=== PATIENT | male | born 1950 | race Caucasian/White ===

== ENCOUNTER 2021-05-31 11:06 | Emergency (ER) | payer OTHER, MEDICARE, SELFPAY ==
[2021-05-31 11:13] VITALS: PULSE 64; O2SAT 96
--- NOTE | 2021-05-31 11:15 | DI.RAD.S_ITS ---
PROCEDURE: XR CHEST 1V INDICATIONS: chest pain TECHNIQUE: One view of the chest was acquired. COMPARISON: None. FINDINGS: Surgical changes and devices: None. Lungs and pleura: Low lung volumes are noted. This causes a crowded appearance to the lung markings and limits evaluation. Minimal interstitial prominence can be seen throughout. No focal infiltrates are seen. No pneumothorax or pleural effusions are seen. Mediastinum: Mediastinal contours appear normal. Heart size is normal. Bones and chest wall: No suspicious bony lesions. Age-appropriate bony degenerative changes are seen. Overlying soft tissues appear unremarkable. IMPRESSION: Minimal interstitial prominence is seen throughout, which may be related to artifact from the low lung volumes or mild pulmonary edema. If clinically appropriate, a short-term followup chest series (with PA and lateral views) performed in deep inspiration is suggested for further evaluation. Dictated by: Feliciano Sheldon M.D. on 05/31/2021 at 10:40 Approved by: Feliciano Sheldon M.D. on 05/31/2021 at 10:41
[2021-05-31 11:16] VITALS: BP 139/76; PULSE 66; RESP 15; TEMP 36.3; O2SAT 98; BMI 30.5
[2021-05-31 11:23] LABS: Add Manual Diff / Slide Review NO; Basophils Absolute Auto 100 /uL (0-100); Eosinophils Absolute Auto 100 /uL (0-450); Eosinophils Percent Auto 1.1 % (2-4); Hematocrit 42.8 % (41-53); Hemoglobin 14.3 g/dL (13.5-17.5); Lymphocytes Absolute Auto 2200 /uL (1100-4500); Lymphocytes Percent Auto 26.4 % (25-40); Mean Corpuscular HGB Conc 33.5 % (30-36); Mean Corpuscular Hemoglobin 29.1 PG (26-34); Mean Corpuscular Volume 86.8 fL (80-100); Monocytes Absolute Auto 400 /uL (0-900); Monocytes Percent Auto 5.2 % (3-14); Neutrophils Absolute Auto 5600 /uL (1500-7000); Neutrophils Percent Auto 66.3 % (50-75); Platelet Count 266 X10^3/uL (150-400); Red Blood Cell Count 4.93 X10^6/uL (4.5-5.9); Red Cell Distribution Width 13.6 % (11.6-14.8); White Blood Cell Count 8.5 X10^3/uL (4.5-11.0)
--- NOTE | 2021-05-31 11:23 | ED.CHESTPAIN ---
HPI - Chest Pain General Chief Complaint: Chest Pain Stated Complaint: indigestion/lightheaded/mid chest pain 45mins ago Time Seen by Provider: 05/31/21 11:23 Source: patient Mode of arrival: Wheelchair Limitations: no limitations History of Present Illness HPI narrative: 70-year-old male. History of high blood pressure. Is visiting the area from [place]. No prior cardiac history except for the high blood pressure. No prior lung history. Approximately 1 hour ago had a fairly sudden onset of what he thought was indigestion, shortness of breath, pain behind his chest. Is been consistent since then. He did take 1 baby aspirin prior to arrival. No nausea vomiting. No abdominal pain. No lower extremity swelling. Related Data Allergies Allergy/AdvReac Type Severity Reaction Status Date / Time No Known Drug Allergies Allergy Verified 05/31/21 11:16 Review of Systems Constitutional Constitutional: Denies fever(s) Eyes Eyes: Reports as per HPI ENT Ears, Nose, Mouth, and Throat: Reports system reviewed and no additional complaints, except as documented Cardiovascular Cardiovascular: Reports as per HPI Respiratory Respiratory: Reports as per HPI Gastrointestinal Gastrointestinal: Reports system reviewed and no additional complaints, except as documented Genitourinary Genitourinary: Reports system reviewed and no additional complaints, except as documented Musculoskeletal Musculoskeletal: Reports system reviewed and no additional complaints, except as documented Integumentary/Breasts Skin/Breast: Reports system reviewed and no additional complaints, except as documented Neurologic Neurologic: Reports system reviewed and no additional complaints, except as documented Psychiatric Psychiatric: Reports system reviewed and no additional complaints, except as documented Hematologic/Lymphatic On Anticoagulants: No Allergic/Immunologic Allergic/Immunologic: Reports system reviewed and no additional complaints, except as documented Patient History Medical History Hypertension Social History Smoking Status: Unknown if ever smoked Smoking Status: Unknown if ever smoked alcohol intake frequency: holidays/special occasions only Substance Use Type: does not use Exam Initial Vital Signs Initial Vital Signs: Vital Signs Temperature 97.4 F L 05/31/21 11:16 Pulse Rate 66 05/31/21 11:16 Respiratory Rate 15 05/31/21 11:16 Blood Pressure 139/76 05/31/21 11:16 Pulse Oximetry 98 05/31/21 11:16 Const General: cooperative, diaphoretic and ill appearing [facility] Head: normal to inspection and normocephalic Eyes General: appearance normal, both eyes and all related structures Neck Neck: normal visual inspection Chest Chest: normal inspection of the chest Resp Effort & Inspection: normal respiratory effort Auscultation: clear to auscultation bilaterally Cardio Rate: regular rate Rhythm: regular rhythm GI Inspection: normal to inspection Palpation: soft and No tender Skin General: no rashes or lesions noted Neuro General: patient alert, patient awake, patient oriented x3 and moves all extremities Extrem General: No edema Psych Appearance: grossly normal and well kempt Scores GCS Bishop coma scale eye opening: Spontaneous [place] coma scale verbal response: Orientated Bishop coma scale motor response: Obey commands [place] coma scale total score: 15 Course Orders Ordered: ED Orders 05/31/21 11:15 XR chest 1V Stat Complete Blood Count AUTO DIFF Stat Comprehensive Metabolic Panel Stat Lipase Stat Troponin & CK Cardiac Panel Stat EKG-12 Lead Stat 05/31/21 11:23 Partial Thromboplastin Time Stat Prothrombin Time INR Stat 05/31/21 11:26 COVID19 -Nasal swab/Pre-Proc Stat Sodium Chloride (Normal Saline 0.9%) 1,000 mls @ 150 mls/hr IV CONT BRANDON Last Admin: 05/31/21 11:29 Dose: 150 mls/hr Documented by: Heparin Sodium/Dextrose (Heparin Drip) 25,000 unit in 500 mls @ 20 mls/hr IV CONT BRANDON; Protocol Last Admin: 05/31/21 11:29 Dose: 1,000 units/hr, 20 mls/hr Documented by: Discontinued Medications Heparin Sodium (Porcine) (Heparin 5,000 Unit/Ml Vial) 5,000 unit IV NOW ONE Stop: 05/31/21 11:25 Last Admin: 05/31/21 11:29 Dose: 5,000 unit Documented by: Morphine Sulfate (Morphine 4 Mg/Ml Inj) 4 mg IV NOW ONE Stop: 05/31/21 11:25 Last Admin: 05/31/21 11:29 Dose: 4 mg Documented by: Vital Signs Vital signs: Vital Signs - 8 hr 05/31/21 11:16 Temperature 97.4 F L Pulse Rate 66 Respiratory Rate 15 Blood Pressure 139/76 Pulse Oximetry 98 MDM - Chest Pain Lab Data Result diagrams: 05/31/21 11:15 05/31/21 11:15 Labs: Lab Results 05/31/21 05/31/21 05/31/21 Range/Units 11:15 11:15 11:23 WBC 8.5 (4.5-11.0) X10^3/uL RBC 4.93 (4.5-5.9) X10^6/uL Hgb 14.3 (13.5-17.5) g/dL Hct 42.8 (41-53) % MCV 86.8 (80-100) fL MCH 29.1 (26-34) PG MCHC 33.5 (30-36) % RDW 13.6 (11.6-14.8) % Plt Count 266 (150-400) X10^3/uL Neut % (Auto) 66.3 (50-75) % Lymph % (Auto) 26.4 (25-40) % [place] % (Auto) 5.2 (3-14) % Eos % (Auto) 1.1 L (2-4) % Baso % (Auto) 1.0 (0-2) % Neut # (Auto) 5600 (1330-1985) /uL Lymph # (Auto) 2200 (8900-8050) /uL Vigo # (Auto) 400 (0-900) /uL Eos # (Auto) 100 (0-450) /uL Baso # (Auto) 100 (0-100) /uL PT 11.1 (10.1-12.7) SECONDS INR 1.0 (0.9-1.3) APTT 29 (26.4-36.2) SECONDS Sodium 140 (137-145) mmol/L Potassium 3.6 (3.4-5.1) mmol/L Chloride 106 (98-107) mmol/L Carbon Dioxide 25 (22-32) mmol/L BUN 17 (9-20) mg/dL Creatinine 0.85 (0.66-1.25) mg/dL Estimated GFR > 60.0 (>60) mL/min BUN/Creatinine Ratio 20.0 (6-22) Glucose 182 H (80-110) mg/dL Calcium 9.8 (8.4-10.2) mg/dL Total Bilirubin 0.9 (0.2-1.3) mg/dL AST 37 (17-59) IU/L ALT 36 (<50) IU/L Alkaline Phosphatase 101 (38-126) U/L Total Creatine Kinase 153 (55-170) U/L Total Protein 7.3 (6.3-8.2) g/dL Albumin 4.4 (3.5-5.0) g/dL Globulin 2.9 (1.7-4.1) g/dL Albumin/Globulin Ratio 1.5 (1.0-2.8) Lipase 92 (23-300) U/L Point of Care Testing Glucose POC 153 Imaging Data Chest x-ray: Attestation: I personally reviewed and interpreted this imaging study as follows: My Impression: Normal size heart, no acute pathology, no wide mediastinum ECG Data Attestation: I personally reviewed and interpreted this ECG as follows: Prior ECG tracings: not available for review Interpretation: Sinus rhythm Ventricular rate is 60 QRS 90 milliseconds QTC [address] elevations in lead 2 3 AVF with depressions in lead 1 [address] V3 V4 [address]-elevation CO MDM Narrative Medical decision making narrative: Patient was given 3 additional baby aspirin. He received 1 prior to arrival. Started on heparin. Was given morphine for his discomfort. Will avoid nitro given the inferior aspect of his ST-elevation CO. His symptoms started approximately 1 hour ago and has been consistent. His only prior history is high blood pressure. Patient is not hypotensive. Discussed the case with Dr. Wolf at [facility] who will accept the patient for an acute transfer for coronary intervention. Patient was informed of the need for transfer. He expressed understanding and agreement. Critical Care Time Critical Care Time Critical Care Time: Yes Total Critical Care Time: 35 Attestation: The high probability of a clinically significant, sudden or life threatening deterioration of the cardiovascular system(s) required my full and direct attention, intervention and personal management. The aggregate critical care time was [35] minutes. This time is in addition to time spent performing reported procedures but includes the following: [X] Data Review and interpretation [X] Patient assessment and monitoring of vital signs [X] Documentation [X] Medication orders and management Discharge Plan Departure Patient Disposition: [facility] Clinical Impression: ST elevation myocardial infarction (STEMI)
[2021-05-31] MEDS: ASPIRIN 81 MG CHEW TAB 243 MG (11:27)
[2021-05-31] MEDS: HEPARIN 5,000 UNIT/ML VIAL 5000 UNIT IV (11:29)
[2021-05-31] MEDS: SODIUM CHLORIDE 0.9% 1,000 ML 150 ML IV (11:29)
[2021-05-31] MEDS: HEPARIN DRIP 25,000 UNIT/500 ML IV.SOLN 20 UNIT IV (11:29)
[2021-05-31] MEDS: MORPHINE 4 MG/ML INJ IV (11:29)
[2021-05-31 11:30] VITALS: BP 144/81; PULSE 63; RESP 25; O2SAT 96
--- NOTE | 2021-05-31 11:35 | PC.NURSE ---
EKG ST elevation 2,3,AVL Dr Acosta notified by RT immediately after EKG. I pulled 3 81mg ASA and gave to pt after verbal ok from Dr Acosta. Pt has taken 81mg ASA this AM. at bedside and both updated on plan of care. All questions answered.
[2021-05-31 11:37] LABS: Prothrombin Time 11.1 SECONDS (10.1-12.7)
[2021-05-31 11:39] LABS: Alanine Aminotransferase 36 IU/L (<50); Albumin 4.4 g/dL (3.5-5.0); Albumin Globulin Ratio 1.5 (1.0-2.8); Alkaline Phosphatase 101 U/L (38-126); Aspartate Aminotransferase 37 IU/L (17-59); Bilirubin Total 0.9 mg/dL (0.2-1.3); Blood Urea Nitrogen 17 mg/dL (9-20); Calcium 9.8 mg/dL (8.4-10.2); Carbon Dioxide 25 mmol/L (22-32); Chloride 106 mmol/L (98-107); Creatine Kinase 153 U/L (55-170); Estimated Glomerular Filt Rate > 60.0 mL/min (>60); Globulin 2.9 g/dL (1.7-4.1); Glucose 182 mg/dL (80-110); HEMOLYSIS < 15 (0-50); Lipase 92 U/L (23-300); Potassium 3.6 mmol/L (3.4-5.1); Sodium 140 mmol/L (137-145); Total Protein 7.3 g/dL (6.3-8.2)
[2021-05-31 11:40] LABS: PTT Partial Thromboplastin Tim 29 SECONDS (26.4-36.2)
--- NOTE | 2021-05-31 11:48 | PC.NURSE ---
Report given to Medics and also called [facility] and gave report to ED RN. IV heparin and fluids remained infusing at discharge, medics took pumps with them.
[2021-05-31 11:51] LABS: Troponin I 0.053 ng/mL (0.01-0.034)
[2021-05-31 11:55] LABS: Creatine Kinase MB 3.04 ng/mL (<2.37)
[2021-05-31 12:04] LABS: COVID19 -Nasal RAPID Negative (Negative)
== END 2021-05-31 11:54 | disposition short-term general hospital (02) ==
PROVIDERS: Emergency Provider Emergency Medicine
DX: I21.3 ST elevation (STEMI) myocardial infarction of unspecified site (principal); Z20.822 Contact with and (suspected) exposure to COVID-19
CPT/HCPCS: 36415; 71045; 80053; 82550; 82553; 82962; 83690; 84484; 85025; 85610; 85730; 87635; 93005; 96365; 96375; 99284; 99291; C9803; J1644; J2270